=== PATIENT | male | born 1985 | race Asian ===

== ENCOUNTER 2020-04-01 00:40 | Emergency (ER) | payer OTHER ==
[~2020-04-01] VITALS: Ht 172.7 cm; Wt 72.6 kg
[2020-04-01 00:48] VITALS: BP 168/100; TEMP 98.6
== END 2020-04-01 01:23 | disposition home or self-care (01) ==
LOC: ED 00:40
DX: K08.89 Other specified disorders of teeth and supporting structures (principal); S02.5XXA Fracture of tooth (traumatic), initial encounter for closed fracture; F17.210 Nicotine dependence, cigarettes, uncomplicated
CPT/HCPCS: 96372; 99283; J0696; J1885